=== PATIENT | male | born 1955 | race Caucasian/White ===

== ENCOUNTER 2018-07-25 05:59 | Day surgery (SDC) | payer OTHER ==
[2018-07-25] MEDS ORDERED: ETOMIDATE 20 MG INJ (08:19)
== END 2018-07-25 11:39 | disposition home or self-care (01) ==
LOC: GIL 05:59
DX: K64.8 Other hemorrhoids (principal); D12.6 Benign neoplasm of colon, unspecified
CPT/HCPCS: 45380; 88305

== ENCOUNTER 2018-09-20 07:08 | Day surgery (SDC) | payer OTHER ==
[2018-09-20 07:46] LABS: ADD MAN DIFF? NO
[2018-09-20 07:53] LABS: BASOPHILS % 0.7 % (0.0-2.0); EOSINOPHILS # 0.3 10^3/ul (0.0-0.5); HEMATOCRIT 42.1 % (42.0-52.0); HEMOGLOBIN 14.2 g/dl (14.0-18.0); LYMPHOCYTES # 1.3 10^3/ul (0.8-2.9); LYMPHOCYTES % 22.2 % (15.0-51.0); MEAN CORPUSCULAR HEMOGLOBIN 30.5 pg (29.0-33.0); MEAN CORPUSCULAR HGB CONC 33.7 g/dl (32.0-37.0); MEAN CORPUSCULAR VOLUME 90.3 fl (82.0-101.0); MEAN PLATELET VOLUME 9.5 fl (7.4-10.4); MONOCYTE # 0.7 10^3/ul (0.3-0.9); MONOCYTES % 11.3 % (0.0-11.0); NEUTROPHIL # 3.5 10^3/ul (1.6-7.5); NEUTROPHILS % 60.6 % (39.0-77.0); PLATELET COUNT 231 10^3/UL (140-415); RED BLOOD COUNT 4.66 10^6/ul (4.70-6.10)
[2018-09-20 07:53] LABS: WHITE BLOOD COUNT 5.8 10^3/ul (4.8-10.8)
[2018-09-20] MEDS ORDERED: SOD CHLORIDE 0.45% 1,000 ML IV (08:00)
[2018-09-20 08:12] LABS: ANION GAP 8 (5-13); BLOOD UREA NITROGEN 13 mg/dl (7-20); CALCIUM 9.6 mg/dl (8.4-10.2); CARBON DIOXIDE 29 mmol/L (21-31); CHLORIDE 107 mmol/L (97-110); CHOL/HDL RATIO 4.9 RATIO; CHOLESTEROL 164 mg/dl (100-200); CREATININE 0.85 mg/dl (0.61-1.24); Estimated GFR > 60 mL/min (>60); GLUCOSE 95 mg/dl (70-220); HDL CHOLESTEROL 33 mg/dl (30-78); LDL CHOLESTEROL,CALCULATED 99 mg/dl; POTASSIUM 4.2 mmol/L (3.5-5.1); SODIUM 144 mmol/L (135-144); TRIGLYCERIDES 160 mg/dl (0-149)
[2018-09-20] MEDS ORDERED: HEPARIN 1000 UNITS/ML 10 ML INJ (08:17)
[2018-09-20] MEDS ORDERED: LIDOCAINE 1% (MDV) 20 ML INJ (08:17)
[2018-09-20] MEDS ORDERED: VERAPAMIL 5 MG INJ (08:18)
[2018-09-20] MEDS ORDERED: MIDAZOLAM 1 MG/ML 2 ML INJ (08:18)
[2018-09-20] MEDS ORDERED: NITROGLYCERIN (IC) 100 MCG/ML INJ (08:18)
[2018-09-20] MEDS ORDERED: FENTAnyl 50 MCG/ML VIAL (08:19)
[2018-09-20 08:20] LABS: INR 0.96; PROTIME 12.9 Sec (11.9-14.9)
[2018-09-20 08:21] LABS: PARTIAL THROMBOPLASTIN TIME 30.3 Sec (23.0-35.0)
[2018-09-20] MEDS: DIPHENHYDRAMINE 50 MG CAP PO (08:22)
[2018-09-20] MEDS: DIAZEPAM 5 MG TAB PO (08:22)
[2018-09-20] MEDS: FAMOTIDINE 20 MG TAB PO (08:22)
[2018-09-20] MEDS ORDERED: SOD CHLORIDE 0.9% 1,000 ML IV (10:59)
[2018-09-20] MEDS ORDERED: ACETAMINOPHEN 325 MG TAB PO (11:00)
[2018-09-20] MEDS ORDERED: ONDANSETRON 4 MG INJ IV (11:00)
[2018-09-20] MEDS ORDERED: morphine 2 MG INJ IV (11:00)
[2018-09-20] MEDS ORDERED: AL HYDROX/MG HYDROX/SIMETH 30 ML CUP PO (11:00)
== END 2018-09-20 18:25 | disposition home or self-care (01) ==
LOC: SDS 07:08
DX: I25.10 Atherosclerotic heart disease of native coronary artery without angina pectoris (principal); I35.0 Nonrheumatic aortic (valve) stenosis; I10 Essential (primary) hypertension; E78.5 Hyperlipidemia, unspecified; I42.9 Cardiomyopathy, unspecified
CPT/HCPCS: 71045; 80048; 80061; 85025; 85610; 85730; 93005; 93460

== ENCOUNTER → 2019-01-11 | Outpatient (CLI) | payer OTHER | END | disposition home or self-care (01) | LOC: EKG 08:53 | DX: I10 Essential (primary) hypertension (principal); I06.0 Rheumatic aortic stenosis | CPT/HCPCS: 93306 ==